=== PATIENT | male | born 1985 | race Two or more races ===

== ENCOUNTER 2018-10-20 07:51 | Emergency (ER) | payer SELFPAY ==
[~2018-10-20] VITALS: Ht 172.7 cm; Wt 83.9 kg
[2018-10-20] MEDS ORDERED: ONDANSETRON HCL/PF 4 MG/2 ML VIAL IVP ONE (08:30)
[2018-10-20] MEDS ORDERED: KETOROLAC TROMETHAMINE INJ 30 MG/ML VIAL IV ONE (08:30)
[2018-10-20] MEDS ORDERED: IV NS 0.9% 1,000 ML BAG IV ONE ×2 (08:30→10:00)
[2018-10-20] MEDS ORDERED: ONDANSETRON HCL/PF 4 MG/2 ML VIAL ONE (08:49)
[2018-10-20] MEDS ORDERED: KETOROLAC TROMETHAMINE 15 MG/ML VIAL ONE (08:49)
[2018-10-20 09:03] LABS: BASOPHILS % (AUTO) 0.3 % (0.0-2.0); EOSINOPHILS % (AUTO) 0.2 % (0.0-6.0); HEMATOCRIT 34 % (39-51); HEMOGLOBIN 10.9 g/dL (13.5-17.5); LYMPHOCYTES # (AUTO) 0.4 /CMM (0.8-4.8); LYMPHOCYTES % (AUTO) 10.7 % (20.0-44.0); MEAN CORPUSCULAR HGB CONC 32 g/dl (31.0-36.0); MEAN CORPUSCULAR VOLUME 83 fL (80-96); MONOCYTES # (AUTO) 0.2 /CMM (0.1-1.30); MONOCYTES % (AUTO) 5.1 % (2.0-12.0); NEUTROPHILS % (AUTO) 83.7 % (43.0-81.0); PLATELET COUNT (AUTO) 485 /CMM (150-450); WHITE BLOOD COUNT (AUTO) 3.5 K/uL (4.3-11.0)
--- NOTE | 2018-10-20 09:09 | NUR ---
Abdominal Pain "having a lot of abdominal pain started 1wk ago NOT better", HX PANCREATITIS, STABLE AND COMFORTABLE ATT,
--- NOTE | 2018-10-20 09:30 | NUR ---
ADDENDUM: Intravenous End Time Documentation: Normal saline 1 liter (IV-WO) : start time: 0930 am ; end time: 1030 am : IV site: LAC # 20Port # 1
[2018-10-20 09:40] LABS: ALBUMIN 2.8 g/dL (3.4-5.0); BILIRUBIN,DIRECT 0.1 mg/dL (0.0-0.2); BILIRUBIN,TOTAL 0.2 mg/dL (0.2-1.0); CREATININE 0.7 mg/dL (0.6-1.3); TOTAL PROTEIN, SERUM 7.2 g/dL (6.4-8.2)
[2018-10-20 09:42] LABS: POTASSIUM 4.2 mmol/L (3.5-5.1)
[2018-10-20 09:57] LABS: BAND % (MANUAL) 3 % (0.0-5.0); LYMPHOCYTES % (MANUAL) 6 % (16-48); MONOCYTES % (MANUAL) 2 % (0-11.0); NEUTROPHILS % (MANUAL) 89 (42-76)
[2018-10-20] MEDS ORDERED: oxyCODONE/APAP (5/325 MG) 1 UDTAB TABLET ONE (10:00)
[2018-10-20] MEDS ORDERED: INSULIN REGULAR, HUMAN 100 UNIT/ML 10 ML VIAL IV ONE (10:00)
[2018-10-20] MEDS ORDERED: oxyCODONE/APAP (5/325 MG) 1 UDTAB TABLET PO ONE (10:00)
[2018-10-20] MEDS ORDERED: INSULIN REGULAR, HUMAN 100 UNIT/ML 10 ML VIAL ONE (10:01)
--- NOTE | 2018-10-20 10:46 | NUR ---
12 UNITS REGULAR INSULIN GIVEN L ARM, BLOOD SUGAR 548, WITNESS BY RHIANNA BEAULIEU, DOCUMENTATION IN EMAR IS NOT ACCEPTING, MD AWARE, EDUCATIONAL SIGN LANGUAGE INTERPRETER GENNER AWARE
--- NOTE | 2018-10-20 10:48 | NUR ---
Patient discharged to home in stable condition. Written and verbal after care instructions given. Patient verbalizes understanding of instruction.IV removed. Catheter intact and site benign. Pressure and 4x4 applied to site. No bleeding noted.
[2018-10-20 10:50] VITALS: BP 128/89
--- NOTE | 2018-10-26 15:17 | NUR ---
`1 LNS IV STOP TIME 0930 HRS, 1 L NS IV STOP TIME 1100 HRS
== END 2018-10-20 10:51 | disposition home or self-care (01) ==
LOC: ER 08:01
DX: F11.10 Opioid abuse, uncomplicated (principal); G89.4 Chronic pain syndrome; N20.0 Calculus of kidney; E11.65 Type 2 diabetes mellitus with hyperglycemia; J06.9 Acute upper respiratory infection, unspecified; Z59.0 Homelessness; Z87.19 Personal history of other diseases of the digestive system
CPT/HCPCS: 36415; 74176; 80048; 80076; 83690; 85025; 85730; 87804 ×2; 96361; 96374; 96375; 99284; A4606; J1815; J1885; J2405; J7030 ×2; 87400